=== PATIENT | female | born 1960 | race Caucasian/White ===

== ENCOUNTER 2017-05-01 04:37 | Emergency (ER) | payer BC ==
[2017-05-01 05:46] LABS: HEMOGLOBIN 14.2 gm/dl (12.3-15.3); RED BLOOD COUNT 4.53 M/UL (4.00-5.10); WHITE BLOOD COUNT 6.4 K/UL (4.5-11.0)
[2017-05-01 06:01] LABS: BUN/CREATININE RATIO 23 (0-10)
== END 2017-05-01 13:00 | disposition home or self-care (01) ==
LOC: ER1 04:37
PROVIDERS: Physician Assistant
DX: R55 Syncope and collapse (principal); S01.01XA Laceration without foreign body of scalp, initial encounter; X58.XXXA Exposure to other specified factors, initial encounter
CPT/HCPCS: 36415; 70450; 71010; 80053; 81001; 82550; 82553; 83874; 84484; 85025; 93005; 96360; 96361; 99284; J7030

== ENCOUNTER → 2021-02-04 | Outpatient (CLI) | payer BC ==
[~2021-02-04] MED LIST: FLUTICASONE PRO16 GM; LEVAQUIN500 MG PO; SUDAFED 12 HOU120 MG PO; SUDAFED PO; TYLENOL W/CODEIN1 E1 PO
== END ==
LOC: KOH-I 12:37
DX: M79.671 Pain in right foot (principal); R60.0 Localized edema
CPT/HCPCS: 73630